=== PATIENT | female | born 1965 | race African-American/Black ===

== ENCOUNTER 2019-11-05 23:29 | Emergency (ER) | payer MEDICAID ==
[~2019-11-05] VITALS: Ht 162.6 cm; Wt 84.0 kg
[2019-11-06 10:15] VITALS: BP 122/80
== END 2019-11-06 10:52 | disposition home or self-care (01) ==
LOC: ER 23:29
DX: J06.9 Acute upper respiratory infection, unspecified (principal); L85.3 Xerosis cutis; F32.9 Major depressive disorder, single episode, unspecified; Z59.0 Homelessness
CPT/HCPCS: 99282

== ENCOUNTER 2019-11-11 23:34 | Emergency (ER) | payer MEDICAID, OTHER ==
[~2019-11-11] VITALS: Ht 162.6 cm; Wt 90.0 kg
[2019-11-12] MEDS ORDERED: ACETAMINOPHEN 325MG TABLET PO SCH (02:34)
[2019-11-12 07:22] VITALS: BP 118/76
== END 2019-11-12 15:27 | disposition home or self-care (01) ==
LOC: ER 23:34
DX: J06.9 Acute upper respiratory infection, unspecified (principal); R51 Headache
CPT/HCPCS: 71045; 99283

== ENCOUNTER 2020-03-12 04:06 | Emergency (ER) | payer OTHER ==
[~2020-03-12] VITALS: Ht 162.6 cm; Wt 90.0 kg
[2020-03-12] MEDS ORDERED: BACITRACIN ZINC OINT UDPKT TOP ONE (06:15)
[2020-03-12 06:33] VITALS: BP 134/79
== END 2020-03-12 06:35 | disposition home or self-care (01) ==
LOC: ER 04:06
DX: M79.672 Pain in left foot (principal); M79.671 Pain in right foot; Z59.0 Homelessness
CPT/HCPCS: 99282